=== PATIENT | male | born 1960 | race Caucasian/White ===

== ENCOUNTER 2024-07-29 10:28 | Outpatient (CLI) | payer BC ==
[2024-07-29 11:12] LABS: #Basophils 0.06 10x3/uL (0.0-0.2); %Basophils 0.9 % (0.0-1.0); %Eosinophils 1.6 % (0.0-10.0); %Lymphocytes 26.1 % (21.0-51.0); %Monocytes 8.8 % (0.0-10.0); Hematocrit 43.5 % (42.0-52.0); Mean Corpuscular HGB CONC 34.5 g/dL (32.0-36.0); Mean Corpuscular Hemoglobin 30.5 pg (27.0-31.0); Mean Corpuscular Volume 88.4 fL (78.0-98.0); Mean Platelet Volume 9.2 fL (7.4-10.4); Platelet Count 278 10x3/uL (130-400); RBC Distribution Width 13.2 % (11.5-14.5); Red Blood Cell (RBC) Count 4.92 mill/uL (4.70-6.10)
[2024-07-29 11:32] LABS: Prothrombin Time 12.7 sec (12.0-14.7)
[2024-07-29 11:35] LABS: Anion Gap 12 mmol/L (10-20); BUN (Urea Nitrogen) 14 mg/dL (8.4-25.7); Calc. Creatinine Clearance 0 mL/min (70-130); Calcium 9.7 mg/dL (7.8-10.44); Carbon Dioxide 22 mmol/L (23-31); Chloride 107 mmol/L (98-107); Estimated GFR 102; Glucose 99 mg/dL (80-115); Potassium 4.5 mmol/L (3.5-5.1); Sodium 136 mmol/L (136-145)
== END 2024-07-29 10:29 | disposition home or self-care (01) ==
LOC: LABBT 10:28
PROVIDERS: ATTEND Orthopaedic Surgery
DX: Z01.818 Encounter for other preprocedural examination (principal); M17.12 Unilateral primary osteoarthritis, left knee
CPT/HCPCS: 80048; 85025; 85610; 87081; 93005; 93010

== ENCOUNTER 2024-08-13 08:26 | Outpatient (CLI) | payer BC ==
[2024-08-13] MEDS ORDERED: Magnevist 469MG/ML 20 ML VIAL ONE (11:29)
== END 2024-08-13 08:27 | disposition home or self-care (01) ==
LOC: MRI 08:26
PROVIDERS: ATTEND Orthopaedic Surgery
DX: M17.12 Unilateral primary osteoarthritis, left knee (principal); M89.9 Disorder of bone, unspecified; M25.462 Effusion, left knee; M23.222 Derangement of posterior horn of medial meniscus due to old tear or injury, left knee

== ENCOUNTER 2024-08-25 08:15 | Outpatient (CLI) | payer BC ==
[2024-08-25 09:36] LABS: #Basophils 0.03 10x3/uL (0.0-0.2); %Basophils 0.5 % (0.0-1.0); %Eosinophils 1.8 % (0.0-10.0); %Lymphocytes 27.1 % (21.0-51.0); %Monocytes 8.7 % (0.0-10.0); %Neutrophils 61.7 % (42.0-75.0); Hematocrit 40.7 % (42.0-52.0); Mean Corpuscular HGB CONC 34.4 g/dL (32.0-36.0); Mean Corpuscular Hemoglobin 30.4 pg (27.0-31.0); Mean Corpuscular Volume 88.3 fL (78.0-98.0); Mean Platelet Volume 9.5 fL (7.4-10.4); Platelet Count 269 10x3/uL (130-400); RBC Distribution Width 13.4 % (11.5-14.5); Red Blood Cell (RBC) Count 4.61 mill/uL (4.70-6.10)
[2024-08-25 09:48] LABS: Prothrombin Time 13.2 sec (12.0-14.7)
[2024-08-25 09:56] LABS: Anion Gap 13 mmol/L (10-20); BUN (Urea Nitrogen) 12 mg/dL (8.4-25.7); Calc. Creatinine Clearance 0 mL/min (70-130); Calcium 9.2 mg/dL (7.8-10.44); Carbon Dioxide 21 mmol/L (23-31); Chloride 108 mmol/L (98-107); Estimated GFR 100; Glucose 103 mg/dL (80-115); Potassium 4.1 mmol/L (3.5-5.1); Sodium 138 mmol/L (136-145)
== END 2024-08-25 08:16 | disposition home or self-care (01) ==
LOC: LABBT 08:15
PROVIDERS: ATTEND Orthopaedic Surgery
DX: Z01.818 Encounter for other preprocedural examination (principal); M17.12 Unilateral primary osteoarthritis, left knee
CPT/HCPCS: 80048; 85025; 85610; 87081; 93005; 93010

== ENCOUNTER 2024-09-02 05:39 | Observation (INO) | payer BC ==
[2024-07-29 10:37] VITALS: BMI 36.5
[2024-09-02] MEDS ORDERED: Vancomycin (BATCH) 300 ML ONE (05:58)
[2024-09-02] MEDS ORDERED: Sodium Chloride 0.9% 100 ML ONE (05:58)
[2024-09-02] MEDS ORDERED: Tranexamic Acid 1,000 MG/10 ML VIAL ONE (05:58)
[2024-09-02] MEDS ORDERED: Bupivacaine PF 0.5% 30 ML VIAL ONE (06:13)
[2024-09-02] MEDS ORDERED: fentaNYL 50 mcg/mL 1 mL Vial ONE ×2 (06:14→10:20)
[2024-09-02] MEDS ORDERED: EPINEPHrine 1 MG/ML VIAL ONE ×2 (06:14→06:18)
[2024-09-02] MEDS ORDERED: Lidocaine 1% (PF) 30 ML VIAL ONE (06:15)
[2024-09-02] MEDS ORDERED: Midazolam HCl 2 mg/2 ml Vial ONE ×2 (06:15→06:22)
[2024-09-02] MEDS ORDERED: Bupivacaine 0.25% HCL 30 ML VIAL ONE (06:19)
[2024-09-02] MEDS ORDERED: PROPOFOL 20 ML ONE (06:21)
[2024-09-02] MEDS ORDERED: fentaNYL PF 100 MCG/2 ML SYRINGE ONE ×3 (06:21→09:46)
[2024-09-02] MEDS ORDERED: Ondansetron PF 4 MG/2 ML Vial ONE (06:25)
[2024-09-02] MEDS ORDERED: Lidocaine 1% PF 5 ML VIAL ONE (06:25)
[2024-09-02] MEDS ORDERED: Dexamethasone 20 MG/5 ML VIAL ONE (06:25)
[2024-09-02] MEDS ORDERED: Lidocaine 2% 6 ML (Jelly) SYR ONE (06:25)
[2024-09-02] MEDS ORDERED: CEFAZOLIN 2 GM VIAL ONE (06:50)
[2024-09-02] MEDS ORDERED: Promethazine HCl 25 MG/ML VIAL IM PRN ×3 (07:03→09:54)
[2024-09-02] MEDS ORDERED: Ondansetron HCl/PF 4 MG/2 ML Vial IVP PRN (07:03)
[2024-09-02] MEDS ORDERED: HYDROmorphone 2 MG/ML VIAL SLOW IVP PRN (07:03)
[2024-09-02] MEDS ORDERED: fentaNYL 50 mcg/mL 1 mL Vial SLOW IVP PRN (07:15)
[2024-09-02] MEDS ORDERED: traMADol HCl 50 MG TAB PO PRN ×2 (07:15)
[2024-09-02] MEDS ORDERED: HYDROcodone/Acetaminophen 10/325 mg Tablet PO PRN ×2 (07:15)
[2024-09-02] MEDS ORDERED: Ondansetron PF 4 MG/2 ML Vial IVP PRN ×2 (07:15→09:54)
[2024-09-02] MEDS ORDERED: Zolpidem Tartrate 5 MG TAB PO PRN ×2 (07:15→09:54)
[2024-09-02] MEDS ORDERED: Ropivacaine 0.2% 550 ML 550 ML NERVE BLCK SCH (07:15)
[2024-09-02] MEDS ORDERED: PHENYLEPHRINE-NS 100 MCG/ML 10 ML SYRINGE ONE (07:17)
[2024-09-02] MEDS ORDERED: ePHEDrine Sulfate 50 MG/10 ML VIAL ONE (07:28)
[2024-09-02] MEDS: Aspirin 81 mg Enteric Coated Tablet PO SCH (09:12)
[2024-09-02] MEDS: Ferrous Gluconate 324 MG TAB PO SCH (09:12)
[2024-09-02] MEDS: Multivitamin W/ Minerals 1 TAB PO SCH (09:13)
[2024-09-02] MEDS: Senokot S 8.6-50 MG TAB PO SCH (09:13)
[2024-09-02] MEDS ORDERED: Ketorolac Tromethamine 30 MG (1 mL) VIAL ONE (09:50)
[2024-09-02] MEDS ORDERED: diphenhydrAMINE 25 MG CAP PO PRN (09:54)
[2024-09-02] MEDS ORDERED: Acetaminophen 325 MG TAB PO PRN ×2 (09:54→12:03)
[2024-09-02] MEDS ORDERED: HYDROmorphone 0.5 MG/0.5 ML SYRINGE ONE (10:19)
[2024-09-02] MEDS: Ketorolac Tromethamine 30 MG (1 mL) VIAL IVP SCH (14:14)
[2024-09-02] MEDS: Sodium Chloride 0.9% 1,000 ML IV SCH (14:54)
[2024-09-02] MEDS: CEFAZOLIN 2 GM in Sodium Chloride 0.9% 100 ML IVPB SCH (14:54)
[2024-09-03] MEDS: Ibuprofen 200 MG TAB PO PRN (04:16)
[2024-09-03 05:37] LABS: Hematocrit 33.1 % (42.0-52.0); Hemoglobin 11.3 g/dL (14.0-18.0); Mean Corpuscular HGB CONC 34.1 g/dL (32.0-36.0); Mean Corpuscular Hemoglobin 30.8 pg (27.0-31.0); Mean Corpuscular Volume 90.2 fL (78.0-98.0); Mean Platelet Volume 9.2 fL (7.4-10.4); Platelet Count 239 10x3/uL (130-400); RBC Distribution Width 13.7 % (11.5-14.5); Red Blood Cell (RBC) Count 3.67 mill/uL (4.70-6.10)
[2024-09-03] MEDS ORDERED: Acetaminophen 325 MG TAB PO PRN (07:32)
[2024-09-03 07:48] VITALS: BP 101/62; TEMP 97.6
[2024-09-04] MEDS ORDERED: FLU (Fluarix Triv) TS24-25(6MOS UP)/PF 45 MCG/0.5 ML Syringe IM ONE (09:00)
== END 2024-09-03 11:05 | disposition home or self-care (01) ==
LOC: SDC 05:39 → SURG B 11:04 → SDC 13:53 → SURG B 13:53 → SDC 09-03 11:05
PROVIDERS: ADMIT Orthopaedic Surgery; ATTEND Orthopaedic Surgery
PROC: 0SRD0JZ Replacement of Left Knee Joint with Synthetic Substitute, Open Approach (ICD-10-PCS; principal; 2024-09-02)
PROC: 3E0T3BZ Introduction of Anesthetic Agent into Peripheral Nerves and Plexi, Percutaneous Approach (ICD-10-PCS; 2024-09-02)
DX: M17.12 Unilateral primary osteoarthritis, left knee (principal)
CPT/HCPCS: 0055T; 27447; 64448; 36415; 85027; A4306; C1713; C1776; C1889; J0171; J0665; J1100; J1171; J1885; J2250; J2405; J2704; J2795; J3010; J3370

== ENCOUNTER 2025-03-05 07:29 | Outpatient (CLI) | payer BC | END 2025-03-05 07:30 | disposition home or self-care (01) | LOC: BICMRI 07:29 | PROVIDERS: ATTEND Orthopaedic Surgery | DX: M47.22 Other spondylosis with radiculopathy, cervical region (principal); M48.02 Spinal stenosis, cervical region | CPT/HCPCS: 72141 ==